=== PATIENT | female | born 1995 | race Caucasian/White ===

== ENCOUNTER 2016-04-19 15:35 | Emergency (ER) | payer OTHER ==
[~2016-04-19] VITALS: Ht 170.2 cm; Wt 70.3 kg
--- NOTE | 2016-04-19 16:38 | ED GENERAL ADULT ---
History of Present Illness General Chief Complaint: General Adult Stated Complaint: KIDNEY PAIN Source: patient, old records Exam Limitations: no limitations Vital Signs & Intake/Output Vital Signs & Intake/Output Vital Signs Date Time Temp Pulse Resp B/P Pulse O2 O2 Flow FiO2 Ox Delivery Rate 04/19 1805 99.8 78 18 122/60 100 Room Air 04/19 1544 98.4 71 18 125/79 100 Room Air Allergies Coded Allergies: No Known Allergies (04/19/16) Reconcile Medications Cyclobenzaprine HCl 5 MG TABLET 1 TAB PO TID PRN muscle relaxant may cause drowsiness Desog-E.estradiol/E.estradiol (Azurette 28 Day Tablet) 0.15 MG-0.02 MG (21)/0.01 MG (5) TABLET 1 TAB PO DAILY BC (Reported) Methylprednisolone. (Medrol) 4 MG TAB.DS.PK 1 DP PO AD pharyngitis/back pain Nitrofurantoin Monohyd/M-Cryst (Macrobid 100 MG Capsule) 100 MG CAPSULE 1 CAP PO BID uti Triage Note: PT TO ER C/C 10/29 B/L FLANK PAIN X 2 HRS. +MILD NAUSEA. DENIES URINARY S/S. LMP 04/02 Triage Nurses Notes Reviewed? yes : No Patient currently breastfeeds: No HPI: Patient is a 20-year-old female presents complaining of "kidney pain". Patient reports she began having a sharp bilateral mid back pain onset approximately 2 hours ago. Pain is currently moderate to severe, no exacerbating or alleviating factors. Patient reports sore throat 2 weeks. Patient has been seen twice for this, reports that she had a normal strep test and a normal monospot test. Patient reports that when she was examined last week that the doctor told her that she had an enlarged spleen. Patient had outpatient blood work yesterday [facility]. Patient has been taking ibuprofen with moderate improvement of her sore throat and her back pain. Patient denies dysuria, hematuria, nausea , vomiting, fevers, chills. (SHAWNA LOPEZ) Past History Travel History Traveled to [place] past 21 day No Medical History Any Pertinent Medical History? none Surgical History Surgical History: meniscus repair Psychosocial History What is your primary language Japanese Tobacco Use: Never used ETOH Use: denies use Family History Hx Contributory? No (SHAWNA LOPEZ) Review of Systems Review of Systems Constitutional: Reports: malaise. Denies: chills, fever. EENTM: Reports: throat pain. Respiratory: Denies: cough, short of breath. Cardiovascular: Denies: chest pain. GI: Denies: abdominal pain, nausea, vomiting. Genitourinary: Denies: discharge, dysuria, frequency, hematuria. Musculoskeletal: Reports: back pain. Skin: Reports: no symptoms. Neurological/Psychological: Reports: no symptoms. Hematologic/Endocrine: Reports: no symptoms. Immunologic/Allergic: Reports: no symptoms. (SHAWNA LOPEZ) Physical Exam Physical Exam General Appearance: well developed/nourished, alert, awake Head: atraumatic, normal appearance Eyes: Bilateral: normal appearance, PERRL, EOMI. Ears, Nose, Throat: hearing grossly normal, mild pharyngeal erythema. Tonsils 2 + bilaterally. No exudates Neck: normal inspection, supple Respiratory: normal breath sounds, chest non-tender, no respiratory distress, lungs clear Cardiovascular: regular rate/rhythm Gastrointestinal: soft, spleenomegaly, mild right lower and left lower tenderness Back: normal inspection, normal range of motion, no vertebral tenderness, no CVA tenderness Extremities: normal inspection, normal capillary refill, normal range of motion, no edema Neurologic/Psych: no motor/sensory deficits, awake, alert, oriented x 3, normal gait, normal mood/affect Skin: intact, normal color, warm/dry Core Measures ACS in differential dx? No CVA/TIA Diagnosis: No Severe Sepsis Present: No Septic Shock Present: No (SHAWNA LOPEZ) Progress Differential Diagnoses I considered the following diagnoses in my evaluation of the patient: Back strain, urinary tract infection, pyelonephritis, kidney stones, mononucleosis, herniated disc, transverse myelitis Plan of Care: Orders Procedure Date/time Status URINE 04/19 1626 Complete URINALYSIS 04/19 1626 Complete Laboratory Tests 04/19/161627: Urine Color YEL, Urine Clarity CLEAR, Urine pH 6.0, Ur Specific [place] 1.025, Urine Protein NEG, Urine Ketones TRACE H, Urine Nitrite NEG, Urine Bilirubin NEG, Urine Urobilinogen 0.2, Ur Leukocyte Esterase NEG, Ur Microscopic SEDIMENT EXAMINED, Urine RBC RARE, Urine WBC 3-5 H, Ur Epithelial Cells RARE, Urine Mucus MOD H, Urine Hemoglobin TRACE-INTACT, Urine Glucose NEG, Urine Test NEGATIVE Patient declined pain medication on initial exam. Labs reviewed from yesterday. No significant abnormalities the patient's CBC or complete metabolic panel. Further labs deferred. Results of urinalysis, CT scan, patient's blood work from yesterday discuss with the patient. As back pain is bilateral with normal CT scan I suspect that pain is musculoskeletal in etiology. 3-5 white blood cells, will start on Macrobid for possibility of urinary tract infection with culture pending. Patient instructed to contact her primary care provider tomorrow for follow-up and further evaluation. (SHAWNA LOPEZ) Initial ED EKG: none (SHAWNA LOPEZ) Departure Departure Time of Disposition: 1830 Disposition: HOME OR SELF CARE Condition: Stable Clinical Impression Primary Impression: Pharyngitis Qualifiers: Pharyngitis/tonsillitis etiology: unspecified etiology Qualified Code: J02.9 - Acute pharyngitis, unspecified Secondary Impressions: Back pain Qualifiers: Back pain location: back pain in unspecified location Chronicity: acute Back pain laterality: bilateral Qualified Code: M54.9 - Dorsalgia, unspecified Referrals: UNKNOWN (PCP/Family) Additional Instructions: Follow-up with your general helper this week for further evaluation. Call tomorrow morning for appointment. Return to emergency department if fevers, swallowing is becoming more difficult, difficulty breathing, pain uncontrollable or worsening of symptoms. Departure Forms: Customer Survey General Discharge Information Prescriptions: Current Visit Scripts Methylprednisolone. (Medrol) 1 DP PO AD #1 DP Nitrofurantoin Monohyd/M-Cryst (Macrobid 100 MG Capsule) 1 CAP PO BID #10 CAP Cyclobenzaprine HCl 1 TAB PO TID PRN muscle relaxant #10 TAB may cause drowsiness (SHAWNA LOPEZ) PA/ADVISOR TO [employer] IN [employer] Co-Sign Statement Statement: ED Attending supervision documentation- [] I saw and evaluated the patient. I have also reviewed all the pertinent lab results and diagnostic results. I agree with the findings and the plan of care as documented in the PA's/ADVISOR [employer]'s documentation. x I have reviewed the ED Record and agree with the PA's/ADVISOR [employer]'s documentation. [] Additions or exceptions (if any) to the PAs/ADVISOR [employer]'s note and plan are summarized below: [] (HODA LARSEN,MARION) Critical Care Note Critical Care Note Critical Care Time: non-applicable (DAVION HAHN,SHAWNA)
[2016-04-19] MEDS ORDERED: AZURETTE 28 DA1 EACH PO (18:04)
[2016-04-19 18:05] VITALS: BP 122/60
--- NOTE | 2016-04-19 18:08 | CT SCAN REPORT ---
EXAMINATION: CT ABDOMEN AND PELVIS WITHOUT CONTRAST CLINICAL INFORMATION: 20-year-old woman with back pain. Evaluate for renal calculi. COMPARISON: None. TECHNIQUE: Multidetector volumetric imaging was performed from the superior aspect of the liver through the pubic symphysis. Sagittal and coronal reformatted images were obtained on the technologist's workstation. DLP: 299 mGy-cm. FINDINGS: The lung bases are well aerated. The liver, spleen, pancreas, adrenals, kidneys, and contracted gallbladder are normal in their noncontrast appearance. Nondilated loops of large and small bowel are unremarkable in appearance. The appendix and terminal ileum are not inflamed. The uterus, adnexal structures, and bladder are normal in appearance. IMPRESSION: No acute intra-abdominal process.
[2016-04-19] MEDS ORDERED: CYCLOBENZAPRINE5 M2 PO (18:33)
[2016-04-19] MEDS ORDERED: MEDROL4 M2 PO (18:33)
[2016-04-19] MEDS ORDERED: MACROBID 100 M100 MG PO (18:33)
== END 2016-04-19 18:37 ==
LOC: ERH 15:35
DX: J02.9 Acute pharyngitis, unspecified (principal); M54.9 Dorsalgia, unspecified
CPT/HCPCS: 74176; 81001; 81025